=== PATIENT | female | born 1995 | race African-American/Black ===

== ENCOUNTER 2016-10-26 17:59 | Emergency (ER) ==
[2016-10-26] MEDS ORDERED: G.I. COCKTAIL PO ONE (18:40)
--- NOTE | 2016-10-26 18:57 | PROVIDER DOCUMENTATION ---
HPI-Abdominal Pain/GI Problem - General Source: patient - History of Present Illness-ABD Nature of Presenting Problems: pt is sa 21 y/o AAF complaining of increased abdominal pain since the of her child 4 months ago. Pt says decreased BM that are hard to pass and increased gas. Pain is worse after eating. Says she has some pain at her c section site. Abdominal Pain Onset Location: reports: epigastric, suprapubic Quality of Pain: reports: aching, cramping, other (gasy) Severity in ED: reports: moderate, severe Onset/Duration: reports: other (4 months) Timing: reports: intermittent, getting worse Activities at Onset: reports: eating Exposure to sick contacts?: No Modifying Factors: improves with: nothing Associated Symptoms: reports: constipation. denies: diarrhea, fever/chills, nausea, vomiting <Obed Varma - Last Filed: 10/26/16 18:51> <Twin Alvarez - Last Filed: 10/26/16 19:33> - General Chief Complaint: General Adult Stated Complaint: ABD PAIN Time Seen by Provider: 10/26/16 18:13 Allergies/Adverse Reactions: Patient Allergies Allergy/AdvReac Type Severity Reaction Status Date / Time No Known Allergies Allergy Verified 01/28/14 12:06 Home Medications: Home Medication List Medication Instructions Recorded Confirmed Last Taken Type Omeprazole [Prilosec] 40 mg PO ACL #30 capsule. 10/26/16 Unknown Rx Review of Systems - Adult - REVIEW OF SYSTEMS - ADULT Constitutional: denies: chills, fever Eyes: reports: no symptoms reported Ears, Nose, Mouth & Throat: reports: no symptoms reported Cardiovascular: denies: chest pain, edema Respiratory: denies: cough, shortness of breath, wheezing Gastrointestinal: reports: abdominal pain, constipation. denies: diarrhea, nausea, vomiting Genitourinary: reports: no symptoms reported Musculoskeletal: reports: no symptoms reported Integumentary: reports: no symptoms reported Neurological: reports: no symptoms reported Psychiatric: reports: no symptoms reported Endocrine: reports: no symptoms reported Hematologic/Lymphatic: reports: no symptoms reported Allergic/Immunologic: reports: no symptoms reported All Other Systems: Reviewed and Negative <Obed Varma - Last Filed: 10/26/16 18:51> Past History - Adult - PAST MEDICAL HISTORY-ADULT Review of Records: reports: Old Records Reviewed, Nursing Assessment Review, Medications Reviewed Major Childhood Illnesses: reports: denies history Cardiovascular: reports: denies history Respiratory: reports: denies history Gastrointestinal: reports: denies history Obstetrical/Gynecological: reports: denies history Genitourinary: reports: denies history Musculoskeletal: reports: denies history Neurological: reports: denies history Endocrine/Immune: reports: denies history Other Conditions: reports: denies history - PRIOR SURGERIES/PROCEDURES Surgical/Procedure History: reports: reviewed, not pertinent - PRIOR HOSPITALIZATIONS Prior Hospitalizations: reports: for other non-related - IMMUNIZATION STATUS Childhood Immunizations: See Nurse Assessment Flu Vaccine: See Nurse Assessment - FAMILY HISTORY Family History: reviewed, not pertinent - SOCIAL HISTORY Smoking: non-smoker Living Situation: family <Obed Varma - Last Filed: 10/26/16 18:51> Physical Exam-General - PHYSICAL EXAM-ADULT Initial Vital Signs Reviewed: Yes - CONSTITUTIONAL General Appearance: appears well, alert, no apparent distress - EYES Eyes: PERRL/EOMI, pink conjunctivae - HEAD, EARS, NOSE, MOUTH & THROAT HENMT: normocephalic/atraumatic, moist mucous membranes, normal ENT inspection, TMs normal, pharynx normal - NECK Neck: full range of motion, supple, normal inspection - RESPIRATORY Respiratory: lungs clear, normal breath sounds, no pleuratic chest pain, no respiratory distress, no accessory muscle use - CARDIOVASCULAR Cardiovascular: normal peripheral pulses, regular rate, rhythm - GASTROINTESTINAL (ABDOMEN) Abdominal Exam: normal bowel sounds, soft, tenderness (epigastirc) - MUSCULOSKELETAL Back Exam: normal inspection, no CVA tenderness, no vertebral tenderness Extremity: normal range of motion, non-tender, normal gait, normal inspection - SKIN Integumentary: normal color, normal turgor, warm/dry - NEUROLOGIC Neurologic: grossly normal, no motor/sensory deficits - PSYCHIATRIC Psych/Mental Status: normal mood/affect, normal thought content, normal thought process, oriented x 3 <Obed Varma - Last Filed: 10/26/16 18:51> Progress - XRAY 1 XRAY Study: Abdomen Impression: Normal XRAY Interpretation: Per Kleeman: no free air/no air fluid level, increasd stool in right asendi <Obed Varma - Last Filed: 10/26/16 18:51> Departure <Obed Varma - Last Filed: 10/26/16 18:51> - Departure Time of Disposition Order: 19:33 Certified Medical Emergency: Urgent <Twin Alvarez - Last Filed: 10/26/16 19:33> - Departure DIAGNOSIS: Gastritis Qualifiers: Gastritis type: unspecified gastritis Chronicity: acute Gastritis bleeding: presence of bleeding unspecified Qualified Code(s): K29.00 - Acute gastritis without bleeding Disposition: HOME 01 Condition: Fair Additional Instructions: TAKE ZANTAC 150mg BEFORE BED KEEP APPOINTMENT WITH EVENT CREW TECHNICIAN EAT VEGETABLES WITH EVERY MEAL (POTATOES AND CORN ARE NOT VEGETABLES) LIMIT FATTY / SNACK FOODS, EAT MOSTLY LEAN MEAT AND BOWELS WILL BE MORE REGULAR Prescriptions: Omeprazole [Prilosec] 40 mg PO ACL #30 capsule.dr Referrals: Ranjit Kaiser MD [STAFF PHYSICIAN] - Attestation - Scribe Verification/Attestation Scribe:: Obed Varma Acting as Scribe for:: Twin Alvarez Scribe documention review:: This chart was documented by a scribe and accurately reflects the service the provider performed and the decisions made by the provider. <Obed Varma - Last Filed: 10/26/16 18:51> Physician Attestation
[2016-10-26] MEDS ORDERED: PRILOSEC PO ONE (19:34)
[2016-10-26 19:52] VITALS: BP 132/84
[2016-10-26 20:02] LABS: URINE CULTURE PL NEEDED? NO; URINE SOURCE CLEAN CATCH
[2016-10-26 20:16] LABS: BILIRUBIN URINE NEGATIVE (NEGATIVE); BLOOD URINE NEGATIVE (NEGATIVE); CLARITY CLEAR (CLEAR); COLOR YELLOW; GLUCOSE URINE NEGATIVE (NEGATIVE); LEUKOCYTES URINE TRACE (NEGATIVE); NITRITE URINE NEGATIVE (NEGATIVE); PH URINE 6.5; PROTEIN URINE NEGATIVE (NEGATIVE); UROBILINOGEN URINE 4+(12 mg/dL)
[2016-10-26 20:17] LABS: URINE EPITHELIAL CELLS <10 /HPF (<10); URINE RBC <10 /HPF (<10); URINE WBC <10 /HPF (<10)
--- NOTE | 2016-10-27 08:17 | Diag Imaging Result Document ---
PROCEDURE NAME: ABDOMEN FLAT/UPRIGHT - 10/26/2016 FLAT AND UPRIGHT, TWO VIEWS: FINDINGS: No free air beneath the diaphragm. No bowel obstruction. No organomegaly. Stomach is distended with debris. No abnormal abdominal calcifications. There is a left pelvic calcification consistent with phlebolith. IMPRESSION: No acute abnormality although there is mild constipation.
== END 2016-10-26 19:52 | disposition home or self-care (01) ==
LOC: P.ED 17:59
DX: K29.00 Acute gastritis without bleeding (principal); R10.13 Epigastric pain; R10.9 Unspecified abdominal pain; K59.00 Constipation, unspecified; R10.816 Epigastric abdominal tenderness
CPT/HCPCS: 74020; 81001; 81025; 99284